=== PATIENT | female | born 1990 | race Caucasian/White ===

== ENCOUNTER 2020-10-12 14:31 | Emergency (ER) | payer OTHER, SELFPAY ==
--- NOTE | ~2020-10-12 | US_ITS ---
EXAMINATION: US OB <=14 wk fetus w TV DATE: 10/12/2020 15:25 INDICATION: Cramping and spotting during first trimester . TECHNIQUE: Real-time pelvic ultrasound utilizing both a transvaginal and transabdominal probe was pe rformed. The interpreting radiologist was not present for the study. COMPARISON: None. FINDINGS: The uterus is obscured on the transabdominal images due to shadowing bowel gas. On transvaginal imagi ng the uterus measures 8.2 x 5.3 x 7.9 cm. There is an intrauterine gestational sac. A yolk sac and f etal pole are identified. The crown rump length measures 5 mm, which correlates with an estimated ges tational age of 6 weeks and 1 days. heart motion is identified measuring 99 beats per minute (b pm) by M-mode Doppler. 10 x 6 x 3 mm hypoechoic likely subchorionic hematoma along the inferior/cervi jayashree side of the gestational sac. The right ovary measures 2.5 x 2.0 x 1.5 cm. The left ovary measures 3.1 x 2.2 x 2.6 cm. 1.6 similar anechoic likely corpus luteum cyst in the left ovary. Vascular flow seen in both ovaries on color Dop pler. There is a small amount of likely physiologic anechoic free fluid in the cul-de-sac. IMPRESSION: 1. Single living fetus with heart of 99 bpm. 2. Gestational age by ultrasound of 6 weeks 1 day(s) +/- 4 day(s) with ultrasound estimated date of delivery (SARAY) of 06/06/2021. 3. Small subchorionic hematoma. Reviewed, dictated and finalized at [facility]. ERY SUPERVISOR IMPRESSION: 1. Single living fetus with heart of 99 bpm. 2. Gestational age by ultrasound of 6 weeks 1 day(s) +/- 4 day(s) with ultraso und estimated date of delivery (SARAY) of 06/06/2021. 3. Small subchorionic hematoma.
[2020-10-12 14:34] VITALS: BP 126/68; PULSE 92; RESP 19; TEMP 36.9; O2SAT 100
[2020-10-12 14:51] LABS: Basophils Absolute Auto 0.1 K/mm3 (0.0-0.1); Basophils Percent Auto 0.5 % (0.2-1.2); Eosinophils Absolute Auto 0.1 K/mm3 (0-0.3); Eosinophils Percent Auto 0.5 % (0-4.4); Hematocrit 37.2 % (37.0-47.0); Hemoglobin 12.4 g/dL (12.0-15.0); Immature Granulocyte Absolute 0.02 K/mm3 (0.00-0.031); Immature Granulocyte Percent A 0.2 % (0-0.5); Lymphocytes Absolute Auto 2.49 K/mm3 (0.9-3.2); Lymphocytes Percent Auto 25.5 % (18.3-44.2); Mean Corpuscular HGB Conc 33.3 g/dl (32-36); Mean Corpuscular Volume 89.9 fl (80-100); Monocytes Absolute Auto 0.7 K/mm3 (0.1-0.6); Monocytes Percent Auto 7.3 % (2.6-8.5); Neutrophils Absolute Auto 6.4 K/mm3 (1.3-6.7); Platelet Count Result 258 k/mm3 (150-375); Red Blood Count 4.14 M/mm3 (4.2-5.4); Red Cell Distribution Width 12.4 % (11.5-14.5); White Blood Count 9.8 K/mm3 (4.5-10.0)
[2020-10-12 15:10] LABS: Add Urine Microscopic? YES; Appearance Urine Cloudy (Clear); Bacteria Urine Trace /hpf; Bilirubin Urine Negative (Negative); Blood Urine 2+ (Negative); Color Urine Yellow (Yellow); Glucose Urine UA Negative (Negative); Ketones Urine Negative (Negative); Leukocyte Esterase Ur 1+ LEU/UL (Negative); Mucus Urine Moderate /lpf; Nitrate Urine Negative (Negative); Protein Urine Negative (Negative); RBC Urine 0-2 /hpf (0-2); Specific Grav Ur 1.025 (1.001-1.035); Squamous Epithelial Cell Urine Many /hpf (Few); Urobilinogen Urine Negative mg/dL (<2.0); WBC Urine 0-3 /hpf
--- NOTE | 2020-10-12 16:26 | ED.PREGNANCY ---
HPI - General Chief complaint: Vaginal Bleeding Stated complaint: CRAMPING AND LOW BACK PAIN - 6 WKS PREG Time Seen by Provider: 10/12/20 15:48 Source: patient Mode of arrival: ambulatory Limitations: no limitations History of Present Illness HPI Narrative: This patient is a 30 year old female approximately 6 weeks GA who presents for evaluation of abdominal cramping and vaginal spotting. She reports she has had intermittent vaginal spotting for 2 weeks. She has brown discharge when she wipes now. She also developed lower back and lower abdominal cramping yesterday. She denies urinary symptoms. She has been having some nausea and vomiting. She had a miscarriage 3 months ago with the same presentation. Related Data Allergies Allergy/AdvReac Type Severity Reaction Status Date / Time No Known Allergies Allergy Verified 10/12/20 17:06 Review of Systems Review of Systems: All systems reviewed & are unremarkable except as noted in HPI and below Gastrointestinal: Gastrointestinal: Reports abdominal pain, Reports nausea and Reports vomiting Genitourinary: Genitourinary: Reports vaginal discharge Musculoskeletal: Musculoskeletal: Reports back pain [facility] Past Medical History Medical History (Updated 10/12/20 @ 18:08 by Yen Platt MD) Endometriosis History of PCOS Surgical History Surgical History (Updated 10/12/20 @ 16:27 by Yen Platt MD) History of endometrial ablation Social History Social History (Updated 10/12/20 @ 16:28 by Yen Platt MD) Smoking status: Never smoker Alcohol intake: never Substance use: never Gender identity (if verbalized by the patient): Female Exam Const: General: no acute distress and alert Orientation/consciousness: patient oriented x3 HENMT: Face and sinus: face symmetric Eyes: EOM: EOMs intact bilaterally Resp: Effort & Inspection: normal respiratory effort, no retractions, not tachypneic and no use of accessory muscles Auscultation: clear to auscultation bilaterally Cardio: Rate: regular rate Rhythm: regular rhythm Heart sounds: no murmurs GI: GI Palp: Yes Soft to palpation, No Tenderness to palpation present (GI), No Guarding due to palpation present (GI) and No Rigid due to palpation Auscultation: normal bowel sounds : Speculum Exam - Cervix: Cervical os closed Other: yellow mucous discharge Skin: General skin exam: normal color Rashes: no rashes Neuro: General: patient oriented x3 and moves all extremities Course Reevaluation(s) Reevaluation #1: I have discussed with patient that she has subchorionic hemorrhage.. She is A+ so no rhogam needed. Date: 10/12/20 Time: 18:05 Vital Signs Vital signs: Vital Signs Temperature 98.5 F 10/12/20 14:34 Pulse Rate 92 10/12/20 14:34 Respiratory Rate 19 10/12/20 14:34 Blood Pressure 126/68 10/12/20 14:34 Pulse Oximetry 100 10/12/20 14:34 Temperature 98.5 F 10/12/20 14:34 Pulse Rate 70 10/12/20 18:25 Respiratory Rate 12 10/12/20 18:25 Blood Pressure 124/70 10/12/20 18:25 Pulse Oximetry 99 10/12/20 18:25 MDM - OB/Uterine Contractions Lab Data Attestation: I reviewed the patient's lab results. Result diagrams: 10/12/20 14:45 Labs: Lab Results 10/12/20 10/12/20 10/12/20 Range/Units 14:45 14:45 14:58 WBC 9.8 (4.5-10.0) K/mm3 RBC 4.14 L (4.2-5.4) M/mm3 Hgb 12.4 (12.0-15.0) g/dL Hct 37.2 (37.0-47.0) % MCV 89.9 (80-100) fl MCH 30.0 (26-34) pg MCHC 33.3 (32-36) g/dl RDW 12.4 (11.5-14.5) % Plt Count 258 (150-375) k/mm3 MPV 10.0 (7.4-10.4) fl Immature Gran % (Auto) 0.2 (0-0.5) % Neut % (Auto) 66.0 (45.5-73.1) % Lymph % (Auto) 25.5 (18.3-44.2) % [place] % (Auto) 7.3 (2.6-8.5) % Eos % (Auto) 0.5 (0-4.4) % Baso % (Auto) 0.5 (0.2-1.2) % Lymph # (Auto) 2.49 (0.9-3.2) K/mm3 [place] # (Auto) 0.7 H (0.1-0.6) K/mm3 Eos # (Auto)
[2020-10-12 16:33] VITALS: BP 121/71; PULSE 77
[2020-10-12 16:34] VITALS: BP 116/68; PULSE 95
[2020-10-12 16:35] VITALS: BP 119/67; PULSE 85
[2020-10-12 17:54] VITALS: BP 122/72; PULSE 76; RESP 12; O2SAT 99
[2020-10-12 18:25] VITALS: BP 124/70; PULSE 70; RESP 12; O2SAT 99
== END 2020-10-12 18:26 | disposition home or self-care (01) ==
PROVIDERS: Emergency Medicine; Emergency Provider General Practice; PCP Nurse Practitioner Family
DX: O20.0 Threatened abortion (principal); O99.281 Endocrine, nutritional and metabolic diseases complicating pregnancy, first trimester; E28.2 Polycystic ovarian syndrome; Z3A.01 Less than 8 weeks gestation of pregnancy; O34.81 Maternal care for other abnormalities of pelvic organs, first trimester; N80.9 Endometriosis, unspecified
CPT/HCPCS: 36415; 76801; 76817; 81001; 84702; 85025; 85461; 87070; 87491; 87591; 87808; 99284

== ENCOUNTER 2020-10-15 16:02 | Emergency (ER) | payer OTHER, SELFPAY ==
[2020-10-15 16:06] VITALS: BP 114/63; PULSE 90; RESP 14; TEMP 37.1; O2SAT 98
[2020-10-15 16:25] LABS: Basophils Absolute Auto 0.1 K/mm3 (0.0-0.1); Basophils Percent Auto 0.6 % (0.2-1.2); Eosinophils Percent Auto 0.5 % (0-4.4); Hematocrit 37.7 % (37.0-47.0); Hemoglobin 12.9 g/dL (12.0-15.0); Immature Granulocyte Absolute 0.03 K/mm3 (0.00-0.031); Immature Granulocyte Percent A 0.3 % (0-0.5); Lymphocytes Absolute Auto 2.11 K/mm3 (0.9-3.2); Lymphocytes Percent Auto 23.9 % (18.3-44.2); Mean Corpuscular HGB Conc 34.2 g/dl (32-36); Mean Corpuscular Hemoglobin 30.1 pg (26-34); Mean Corpuscular Volume 87.9 fl (80-100); Mean Platelet Volume 10.3 fl (7.4-10.4); Monocytes Absolute Auto 0.6 K/mm3 (0.1-0.6); Monocytes Percent Auto 6.7 % (2.6-8.5); Platelet Count Result 246 k/mm3 (150-375); Red Blood Count 4.29 M/mm3 (4.2-5.4); Red Cell Distribution Width 12.3 % (11.5-14.5); White Blood Count 8.8 K/mm3 (4.5-10.0)
[2020-10-15 16:40] LABS: Alanine Aminotransferase 19 U/L (4-35); Albumin Level 4.5 g/dL (3.5-5.1); Alkaline Phosphatase 54 U/L (38-126); Anion Gap 9 mmol/L (8-16); Aspartate Amino Transferase 22 U/L (14-36); Bilirubin,Total 0.6 mg/dL (0.2-1.3); Blood Urea Nitrogen 6 mg/dL (7-17); Calcium 9.2 mg/dL (8.4-10.2); Carbon Dioxide 25 mmol/L (22-30); Chloride 101 mmol/L (98-107); Estimated CRCL calculation 150 ml/min; Estimated Glomerular Filt Rate > 60; Glucose 99 mg/dL (65-105); Lipase 51 U/L (23-300); Potassium 3.7 mmol/L (3.4-5.0); Sodium 135 mmol/L (137-145)
[2020-10-15 17:00] LABS: Add Urine Microscopic? YES; Amorphous Sediment Urine Moderate; Appearance Urine Cloudy (Clear); Bacteria Urine Trace /hpf; Bilirubin Urine Negative (Negative); Blood Urine 2+ (Negative); Calcium Oxalate Crystals Urine Present /hpf; Color Urine Yellow (Yellow); Glucose Urine UA Negative (Negative); Ketones Urine 1+ mg/dL (Negative); Leukocyte Esterase Ur Trace LEU/UL (Negative); Mucus Urine Few /lpf; Nitrate Urine Negative (Negative); Protein Urine 1+ mg/dL (Negative); Specific Grav Ur 1.019 (1.001-1.035); Squamous Epithelial Cell Urine Few /hpf (Few); Urobilinogen Urine Negative mg/dL (<2.0); WBC Urine 0-3 /hpf
[2020-10-15] MEDS: BELLADONNA ALK/PHENOB ELIX 10 ML, MAG HYDROX/ALUMINUM HYD/SIMETH 30 ML, LIDOCAINE HCL 2... PO (17:36)
--- NOTE | 2020-10-15 17:49 | ED.ABDPAIN ---
HPI - Abdominal Pain General Chief Complaint: Abdominal Pain Stated Complaint: abd pain Time Seen by Provider: 10/15/20 16:49 Source: patient and family Limitations: no limitations History of Present Illness HPI narrative: 30-year-old with a history of PCOS, endometriosis here with complaints of epigastric pain for past few days. Patient states that he has a constant pain in the upper abdomen. She denies any fever or chills has occasional nausea. Patient states that she is . MD elicited complaint: abdominal pain Pertinent past history: none Pain Consistency: constant Location: epigastric Severity: moderate Quality: aching Radiation: none Migration to: no migration Relieving factors: nothing Related Data Home Medications Medication Instructions Recorded Confirmed 10/15/20 naltrexone 4 mg 10/15/20 progesterone micronized 200 mg 10/15/20 Allergies Allergy/AdvReac Type Severity Reaction Status Date / Time Sulfa (Sulfonamide Allergy Hives Verified 10/15/20 16:42 Antibiotics) Review of Systems Review of Systems: All systems reviewed & are unremarkable except as noted in HPI and below Constitutional: Constitutional: Reports no additional constitutional complaints Eyes: Eyes: Reports as per HPI and Reports no additional eye complaints ENT: Reports as per HPI Cardiovascular: Cardiovascular: Reports as per HPI Respiratory: Respiratory: Reports no additional respiratory complaints Gastrointestinal: Gastrointestinal: Reports as per HPI Musculoskeletal: Musculoskeletal: Reports no additional musculoskeletal complaints Neurologic: Reports system reviewed and no additional complaints, except as documented PMFSH Past Medical History Medical History Endometriosis History of PCOS Surgical History Surgical History History of endometrial ablation Social History Social History Smoking status: Never smoker Alcohol intake: never Substance use: never Gender identity (if verbalized by the patient): Female Exam Narrative: Exam Narrative: GENERAL: Well-appearing, well-nourished, and in no acute distress. HEAD: Normocephalic, atraumatic. EYES: PERRLA and EOMI. NECK: Supple. CHEST: Clear to auscultation. No respiratory distress. HEART: Regular rate and rhythm. No murmur heard. Normal peripheral pulses. ABDOMEN: Soft, tender in the epigastric area , nondistended, normal active bowel sounds. EXTREMITIES: Normal range of motion. No edema. SKIN: Warm, dry, no rash. NEURO: No focal deficits. Alert and oriented x3. PSYCH: Normal mood and affect. Course Course Emergency Course: Patient states he is feeling slightly better. Informed patient about lab work. Her gastritis could be exacerbated by her from . Advised her to take Maalox as needed, follow-up with primary doctor. Vital Signs Vital signs: Vital Signs Temperature 37.1 C 10/15/20 16:06 Pulse Rate 90 10/15/20 16:06 Respiratory Rate 14 10/15/20 16:06 Blood Pressure 114/63 10/15/20 16:06 Pulse Oximetry 98 10/15/20 16:06 Temperature 37.1 C 10/15/20 16:06 Pulse Rate 90 10/15/20 16:06 Respiratory Rate 14 10/15/20 16:06 Blood Pressure 114/63 10/15/20 16:06 Pulse Oximetry 98 10/15/20 16:06 MDM - Abdominal Pain Lab Data Result diagrams: 10/15/20 16:15 10/15/20 16:15 Labs: Lab Results 10/15/20 10/15/20 10/15/20 Range/Units 16:15 16:15 16:46 WBC 8.8 (4.5-10.0) K/mm3 RBC 4.29 (4.2-5.4) M/mm3 Hgb 12.9 (12.0-15.0) g/dL Hct 37.7 (37.0-47.0) % MCV 87.9 (80-100) fl MCH 30.1 (26-34) pg MCHC 34.2 (32-36) g/dl RDW 12.3 (11.5-14.5) % Plt Count 246 (150-375) k/mm3 MPV 10.3 (7.4-10.4) fl Immature Gran % (Auto) 0.3 (0-0.5) % Neut % (Auto)
[2020-10-15 18:20] VITALS: BP 99/56; PULSE 80; RESP 16; O2SAT 100
[2020-10-15] MEDS: ONDANSETRON HCL ODT 4 MG TABLET (18:22)
== END 2020-10-15 18:20 | disposition home or self-care (01) ==
PROVIDERS: Emergency Provider Family Medicine; PCP Family Medicine
DX: O99.619 Diseases of the digestive system complicating pregnancy, unspecified trimester (principal); K29.70 Gastritis, unspecified, without bleeding; Z3A.00 Weeks of gestation of pregnancy not specified
CPT/HCPCS: 36415; 80053; 81001; 81025; 83690; 85025; 99283; A9270

== ENCOUNTER 2024-11-30 12:39 | Outpatient (CLI) | payer OTHER, SELFPAY ==
--- NOTE | ~2024-11-30 | XR_ITS ---
CHEST RADIOGRAPH, PA AND LATERAL CLINICAL HISTORY: HISTORY OF PNEUMONIA X 3 WEEKS, COUGH . COMPARISON: None available TECHNIQUE: PA and lateral views of the chest. FINDINGS The cardiomediastinal silhouette is partially obscured. Dense opacification of the superior segment of the left lower lobe. The remainder of the lungs are clear. IMPRESSION: Dense opacification of the superior segment of the left lower lobe, as detailed above. Reviewed, dictated and finalized at location A. ESTIMATOR
== END 2024-11-30 12:40 | disposition home or self-care (01) ==
PROVIDERS: PCP Family Medicine; Visit Provider Family Medicine
DX: R91.8 Other nonspecific abnormal finding of lung field (principal); R05.9 Cough, unspecified; Z87.01 Personal history of pneumonia (recurrent)
CPT/HCPCS: 71046

== ENCOUNTER 2025-01-09 12:21 | Outpatient (CLI) | payer OTHER, SELFPAY ==
--- NOTE | ~2025-01-09 | XR_ITS ---
Clinical Indication: Pneumonia PA and lateral views of the chest: Comparison: 11/30/2024 Findings: The lungs are clear, without evidence of focal consolidation or pleural effusion. Cardiome diastinal silhouette is within normal limits. Bones and soft tissues are unremarkable. Impression: Normal chest. Reviewed, dictated and finalized at [facility]. 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
--- OUTSIDE RECORDS SUMMARY | 2025-01-09 12:26 | XMS_ITS | Clinical Summary ---
Author Organization [facility] [email or web address] Address [address] [place] [address] Care Team Providers Care Flea Market Seller Name Role Phone Jax Carl MD Primary Care Provider Source Comments [facility],non-owned Affiliates and Associated Physician Practices is amultiple site organization consisting of ambulatory clinics and hospital sitesin [place], [place], [place] and [place]. This disclosure is being madepursuant to the Care Everywhere program and may not contain all information available regarding this patient. Last updated 18.[facility] [email or web address] Allergies Active Allergy Reactions Criticality Noted Date Comments Nsaids Nausea and/or Vomiting,GI Discomfort 06/13/2019 Penicillins Rash Medium 05/29/2020 Sulfa Drugs Shortness of Breath,Rash,Urticaria High 02/11/2017 Medications * Be aware that medications may not be up to date on this document. Alwaysverify current medications with the patient. Medication Sig Dispensed Refills Start Date End Date Status FLUoxetine (PROZAC) 20 MG capsule Take 40 mg by mouth once daily 2 03/09/2019 Active ALPRAZolam (XANAX) 0.25 MG tablet Take 0.25 mg by mouth as needed 0 02/15/2019 Active Acetaminophen-Codein e (TYLENOL/CODEINE #3) 300-30 MG Take 1 tablet by mouth 2 times daily Active baclofen (LIORESAL) 10 MG/20ML injection by Intrathecal route once Active Active Problems No known active problems Encounters Date Type Department Care Team Description 01/03/2025 Travel 01/03/2025 Telephone [facility] - WATCH REPAIR TECHNICIAN [address] [place] [id number] Lupe Denis Appointment 12/05/2024 Travel from Last 3 Months Family History Medical History Relation Name Comments Cancer - Bladder Father Cancer - Prostate Father Diabetes - Type 1 Father Bipolar Disorder Maternal Grandmother Diabetes - Type 2 Maternal Grandmother Muscular Dystrophy Mother Thyroid Disease Mother Hashimotos Depression Paternal Grandmother Thyroid Disease Sister Hashimotos Relation Name Status Comments Father Maternal Grandmother Mother Paternal Grandmother Sister Social History Tobacco Use Types Packs/Day Years Used Date Smoking Tobacco: Former Cigarettes Smokeless Tobacco: Current Alcohol Use Standard Drinks/Week Comments Yes 1 (1 standard drink = 0.6 oz pur e alcohol) occasionally Sex and Gender Information Value Date Recorded Sex Assigned at Not on file Gender Identity Not on file Sexual Orientation Not on file Last Filed Vital Signs Vital Sign Reading Time Taken Comments Blood Pressure 122/80 07/17/2019 9:52 AM CDT Pulse 81 06/13/2019 4:57 PM CDT Temperature 36.9 C (98.5 F) 06/13/2019 4:57 PM CDT Respiratory Rate 17 06/13/2019 4:57 PM CDT Oxygen Saturation 100% 06/13/2019 4:57 PM CDT Inhaled Oxygen Concentration - - Weight 75.7 kg (166 lb 12.8 oz) 05/29/2020 3:22 PM CDT Height 177.8 cm (5' 10 ) 05/29/2020 3:22 PM CDT Body Mass Index 23.93 05/29/2020 3:22 PM CDT Plan of Treatment Upcoming Encounters Date Type Department Care Team (Late st Contact Info) Description 02/08/2025 3:00 PM CDT Office Visit [facility] - WATCH REPAIR TECHNICIAN [address], [facility] [address] [place] [id number] Daija Brandon MD [address] [place] [address] Health Maintenance Due Date Last Done Comments PAP SMEAR 1991 HIV SCREENING 2006 HEPATITIS C SCREENING 05/06/2009 DTAP/TDAP/TD VACCINES (1 - Tdap) 2010 HEPATITIS B VACCINE (1 of 3 - 19+ 3-dose series) 2010 COVID-19 VACCINE (2023-2 5 season) 2024 INFLUENZA VACCINE (#1) 2024 DEPRESSION SCREENING 11/22/2024 ZOSTER VACCINE (1 of 2) 2041 HIB VACCINE Aged Out No longer eligi ble based on patient's age to complete this topic HPV VACCINE Aged Out No longer eligi ble based on patient's age to complete this topic MENINGOCOCCAL (Group B) VACCINE Aged Out No longer eligible based on patient's age to complete this topic MENINGOCOCCAL VACCINE Aged Out No vicky purvi eligible based on patient's age to complete this topic PNEUMOCOCCAL VACCINE Aged Out No long er eligible based on patient's age to complete this topic Care Teams Flea Market Seller Relationship Specialty Start Date End Date Jax Carl MD [address] [place] [address] PCP - General 03/23/19
--- OUTSIDE RECORDS SUMMARY | 2025-01-09 12:26 | XMS_ITS | Clinical Summary ---
Author Organization [facility] Address [address] [place] [address] Phone Care Team Providers Care Global Ceo Name Role Phone Jax Carl MD Primary Care Provider [phone] Social History Tobacco Use Types Packs/Day Years Used Date Smoking Tobacco: Never Assessed Comments Unknown Sex and Gender Information Value Date Recorded Sex Assigned at Not on file Legal Sex Female 12:28 AM CDT Gender Identity Not on file Sexual Orientation Not on file Plan of Treatment Health Maintenance Due Date Last Done Comments Hepatitis C Virus (HCV) Screening 1991 TdaP Immunization 1991 Hepatitis B Immunization (1 of 3 - 19+ 3-dose series) 2010 Pap Smear 2012 Cervical Cancer Screening (CCS) 2021 HPV/Cotest 2021 Influenza Immunization (#1) 2024 SARS-COV-2 Immunization ( season) 2024 Respiratory Syncytial Virus (RSV) Immunization (Adult) (1 - 1-dose 75+ series) 2066 DTaP/Tdap/Td Immunization Discontinued 1992, 10/27/1992, 06/10/1992, Additional history exists Meningococcal Immunization (ACWY) Aged Out No longer eligible based on patient's age to complete this topic Pneumococcal Immunization Combined Aged Out No longer eligible based on patient's age to complete this topic Rotavirus Immunization Aged Out No lo nger eligible based on patient's age to complete this topic Insurance MEDICAID [employer] Care Teams Global Ceo Relationship Specialty Start Date End Date Jax Carl MD [address] [place] [address] PCP - General Family Medicine 06/28/18
--- OUTSIDE RECORDS SUMMARY | 2025-01-09 12:26 | XMS_ITS | Clinical Summary ---
Author Organization [facility] Address [address] [place] [id number] Care Team Providers Care Aircraft De Icer Installer Name Role Phone Jax Carl MD Primary Care Provider [phone] Jax Carl MD Unavailable [phone] Allergies Active Allergy Reactions Criticality Noted Date Comments Penicillins Sulfa (Sulfonamide Antibiotics) Medications No known medications Active Problems Problem Noted Date Diagnosed Date Normal labor and delivery 06/05/2021 Constipation 10/25/2020 Assessment & Plan (10/25/2020 12:00 PM APPLE PACKING HEADER): -Start fiber gummies in the morning and take one dose of Miralax in the evening. If no BM in a few days with these, use 2 doses of Miralax in the evening. -If still no BM after a couple days of this regimen, add docusate 100mg every day to BID. -If still having issues, can use Milk of mag prn along with above regimen. -Pt will likely need colonoscopy at some point if issues continue but due to , we will do this at a later time if needed. Epigastric burning sensation 10/25/2020 Assessment & Plan (10/25/2020 12:01 PM APPLE PACKING HEADER): -Limit use of things due to . She should continue TUMS and famotidine prn. -Try to avoid spicy, acidic foods. BMI 23.0-23.9, adult 10/25/2020 Threatened miscarriage 06/24/2020 Irritable bowel syndrome 01/24/2013 Abdominal pain 10/24/2012 Assessment & Plan (10/25/2020 12:00 PM APPLE PACKING HEADER): -Occurring during BM and likely related to constipation. Family History Medical History Relation Name Comments Diabetes Father Family history of diabetes mellitus - (Added by TW Conv) Relation Name Status Comments Father Social History Tobacco Use Types Packs/Day Years Used Date Smoking Tobacco: Former Personal Safety Answer Date Recorded Getting School Help Needed Not on file 01/16 Comments Unknown Sex and Gender Information Value Date Recorded Sex Assigned at Not on file Legal Sex Female 4:37 AM APPLE PACKING HEADER Gender Identity Not on file Sexual Orientation Not on file Obstetrics History Para Term AB IAB SAB Ectopic Multiple Livin g Live Births 1 Date Outcome GA Total Labor Labor/2nd/3rd Weight Sex Type Anes PTL Joanie A1 A5 Name Clin Last Filed Vital Signs Vital Sign Reading Time Taken Comments Blood Pressure 118/78 11/14/2022 11:00 AM APPLE PACKING HEADER Pulse 92 11/14/2022 11:00 AM APPLE PACKING HEADER Temperature 37.1 C (98.8 F) 11/14/2022 11:00 AM APPLE PACKING HEADER Respiratory Rate 16 11/14/2022 11:00 AM APPLE PACKING HEADER Oxygen Saturation 98% 11/14/2022 11:00 AM APPLE PACKING HEADER Inhaled Oxygen Concentration - - Weight 79.4 kg (175 lb) 11/14/2022 11:00 AM APPLE PACKING HEADER Height 177.8 cm (5' 10 ) 11/14/2022 11:00 AM APPLE PACKING HEADER Body Mass Index 25.11 11/14/2022 11:00 AM APPLE PACKING HEADER Plan of Treatment Health Maintenance Due Date Last Done Comments Cervical Cancer Screening 1991 Depression Screening 1991 Hepatitis C Screening 1991 DTaP/Tdap/Td Vaccine (5 - Tdap) 2002 06/09/1993, 10/27/1992, 06/10/1992, Additional history exists Varicella Vaccines (1 of 2 - 13+ 2-dose series) 2004 Hepatitis B Screening 2009 Regular Well Visit/Exam 18-64 2009 Influenza Vaccine (#1) 2024 HPV Vaccines Aged Out No longer eligi ble based on patient's age to complete this topic Pneumococcal vaccine <65 Aged Out No longer eligible based on patient's age to complete this topic Insurance [facility] Care Teams Aircraft De Icer Installer Relationship Specialty Start Date End Date Jax Carl MD PCP - General Family Medicine 09/03/20 Jax Carl MD 09/03/20
--- OUTSIDE RECORDS SUMMARY | 2025-01-09 12:26 | XMS_ITS | Continuity of Care Document ---
Author Organization [facility] Address [address] [place] [address] Phone Care Team Providers Care Plant Safety Leader Name Role Phone Axel Garrett MD Unavailable Unavailable Procedures Procedure Date Office/outpatient Visit, Est Eye Exam, New Patient Advance Directives Directive Yes / No Effective Date File Name No Information Encounters Encounter Description Practice Location Reason(s) For Visit Diagnoses Date Provider Providers Copied on Encounter Office/outpat ient Visit, Est [facility], [address] [place] [address] [address], [place], [place], [id number], tel:[phone] SEC Greg COULTER Professional No Information 9-201 2 Tami Reyna. [address] [facility] [place], [id number], [place]. tel:[phone] [facility], [address] [place] [address] [address], [place], [place], [id number], tel:[phone] SEC [place] MARYLIN Professional No Information 2-200 9 Tami Reyna. [address], [facility] [address], [place], [place], [id number], [place]. tel:[phone] Family History Family Member Type Diagnosis Age At Onset No Information Payers Payer name Insurance type Covered republican ID Authoriza tion(s) No Information Social History Type Description Quantity Date Captured Comments Sex Female Smoking Status No Information Chief Complaint And Reason For Visit No Information Reason For Referral Reason For Referral No Information History Of Present Illness Encounter Date Complaint History Of Prese nt Illness No Information Functional Status Date Functional Assessmen t No Information Instructions Date Instruction Additional Infor mation No Information Assessments Type Assessment Date No Information Patient Care Teams Name Effective Dates (start - stop) Status Members No Information
--- OUTSIDE RECORDS SUMMARY | 2025-01-09 12:26 | XMS_ITS | Referral Summary ---
Author Organization [facility] Address [address] [place] [address] Care Team Providers Care Combat Systems Engineer Name Role Phone Jax Carl MD Primary Care Provider [phone] Jax Carl MD Unavailable [phone] Allergies Active Allergy Reactions Criticality Noted Date Comments Penicillins Sulfa (Sulfonamide Antibiotics) Medications No known medications Active Problems Problem Noted Date Diagnosed Date Normal labor and delivery 06/05/2021 Constipation 10/25/2020 Assessment & Plan (10/25/2020 12:00 PM RUBY DEVELOPER): -Start fiber gummies in the morning and [...] 10/25/2020 Assessment & Plan (10/25/2020 12:01 PM RUBY DEVELOPER): -Limit use of things due to . She should continue TUMS and famotidine prn. -Try to avoid spicy, acidic foods. BMI 23.0-23.9, adult 10/25/2020 Threatened miscarriage 06/24/2020 Irritable bowel syndrome 01/24/2013 Abdominal pain 10/24/2012 Assessment & Plan (10/25/2020 12:00 PM RUBY DEVELOPER): -Occurring during BM and likely related to constipation. Social History Tobacco Use Types Packs/Day Years Used Date Smoking Tobacco: Former Personal Safety Answer Date Recorded Getting School Help Needed Not on file 01/16 Comments Unknown Sex and Gender Information Value Date Recorded Sex Assigned at Not on file Legal Sex Female 4:37 AM RUBY DEVELOPER Gender Identity Not on file Sexual Orientation Not on file Last Filed Vital Signs Vital Sign Reading Time Taken Comments Blood Pressure 118/78 11/14/2022 11:00 AM RUBY DEVELOPER Pulse 92 11/14/2022 11:00 AM RUBY DEVELOPER Temperature 37.1 C (98.8 F) 11/14/2022 11:00 AM RUBY DEVELOPER Respiratory Rate 16 11/14/2022 11:00 AM RUBY DEVELOPER Oxygen Saturation 98% 11/14/2022 11:00 AM RUBY DEVELOPER Inhaled Oxygen Concentration - - Weight 79.4 kg (175 lb) 11/14/2022 11:00 AM RUBY DEVELOPER Height 177.8 cm (5' 10 ) 11/14/2022 11:00 AM RUBY DEVELOPER Body Mass Index 25.11 11/14/2022 11:00 AM RUBY DEVELOPER Plan of Treatment Not on file Insurance [facility] Care Teams Combat Systems Engineer Relationship Specialty Start Date End Date Jax Carl MD PCP - General Family Medicine 09/03/20 Jax Carl MD 09/03/20
--- OUTSIDE RECORDS SUMMARY | 2025-01-09 12:26 | XMS_ITS | Referral Summary ---
Author Organization [facility] Address [address] [place] [address] Care Team Providers Care Power Plant Operator Name Role Phone Jax Carl MD Primary Care Provider [phone] Source Comments [facility],non-owned Affiliates and Associated Physician Practices is amultiple site organization consisting of ambulatory clinics and hospital sitesin [place], [place], [place]. This disclosure is being madepursuant to the Care Everywhere program and may not contain all information available regarding this patient. Last updated 18.[facility] Encounters Date Type Department Care Team Description 01/03/2025 Travel 01/03/2025 Telephone [facility] - ROLLER OPERATOR [address] [place] [address] Lupe Denis Appointment 12/05/2024 Travel from Last 3 Months Allergies Active Allergy Reactions Criticality Noted Date [...] Active Active Problems No known active problems Social History Tobacco Use Types Packs/Day Years [...] Description 02/08/2025 3:00 PM CDT Office Visit [facility] - ROLLER OPERATOR [address], [facility] [address] [place] [id number] Daija Brandon MD [address] [place] [address] Care Teams Power Plant Operator Relationship Specialty Start Date End Date Jax Carl MD [address] [place] [phone] PCP - General 03/23/19
--- OUTSIDE RECORDS SUMMARY | 2025-01-09 12:26 | XMS_ITS | Patient Health Summary ---
Author Organization [facility] Address [address] [place] [address] Care Team Providers Care Patient Support Tech Name Role Phone Jax Carl MD Primary Care Provider Note from [facility],non-owned Affiliates and Associated Physician Practices is amultiple site organization consisting of ambulatory clinics and hospital sitesin [place], [place], [place] and [place]. This disclosure is being madepursuant to the Care Everywhere program and may not contain all information available regarding this patient. Last updated 18.[facility] Allergies * Nsaids(Nausea and/or Vomiting,GI Discomfort) * Penicillins(Rash) -Medium Criticality * Sulfa Drugs(Shortness of Breath,Rash,Urticaria) -High Criticality Medications * Be aware that medications may not be up to date on this document. Alwaysverify current medications with the patient. * FLUoxetine (PROZAC) 20 MG capsule(Started 03/09/2019) Take 40 mg by mouth once daily 2 refills left * ALPRAZolam (XANAX) 0.25 MG tablet(Started 02/15/2019) Take 0.25 mg by mouth as needed * Acetaminophen-Codeine (TYLENOL/CODEINE #3) 300-30 MG Take 1 tablet by mouth 2 times daily * baclofen (LIORESAL) 10 MG/20ML injection by Intrathecal route once Active Problems No known active problems Social [...] Mass Index 23.93 05/29/2020 3:22 PM CDT Procedures * TESTOSTERONE TOTAL(Performed 07/19/2019) * DHEA SULFATE(Performed 07/19/2019) * HYDROXYPROGESTERONE 17- QUANT(Performed 07/19/2019) * GTT 2 HR (75G) NON GESTATIONAL(Performed 07/19/2019) * GLUCOSE PLASMA(Performed 07/19/2019) * UT INSERT NON-INDWELLING BLADDER(Performed 07/17/2019) Performed for IC (interstitial cystitis) * URINALYSIS - POINT OF CARE (AMB) [facility](Performed 07/17/2019) Performed for IC (interstitial cystitis) * APHERESIS/TRANSFUSION ORDER(Performed 06/15/2019) * CARDIAC RHYTHM STRIP ORDER(Performed 06/15/2019) * PATHOLOGY TISSUE EXAM (STL)(Performed 06/13/2019) Performed for Diagnosis unknown * ENDOTRACHEAL TUBE NOTE(Performed 06/13/2019) * LAPAROSCOPIC ENTEROLYSIS(Performed 06/13/2019) Performed for Diagnosis unknown * URETEROLYSIS(Performed 06/13/2019) Performed for Diagnosis unknown * CYSTOSCOPY WITH HYDRODISTENSION BLADDER(Performed 06/13/2019) Performed for Diagnosis unknown * LAPAROSCOPIC APPENDECTOMY(Performed 06/13/2019) Performed for Diagnosis unknown * LAPAROSCOPIC FULGURATION/EXCISION LESION PELVIC/OVARY (LASER)(Performed 06/13/2019) Performed for Diagnosis unknown * BLOOD TYPE VERIFICATION(Performed 06/13/2019) Performed for Preop examination * HCG URINE QUALITATIVE - POCT (IP) INTERFACED(Performed 06/13/2019) * HCG URINE QUAL POCT NOTIFICATION(Performed 06/13/2019) Performed for Preop examination * IMAGING/RADIOLOGY/XRAY RESULTS ORDER(Performed 06/08/2019) * TYPE + SCREEN PANEL(Performed 06/08/2019) Performed for Pre-op testing * BASIC METABOLIC PANEL (CALCIUM TOTAL)(Performed 06/08/2019) Performed for Pre-op testing * CBC W AUTO DIFFERENTIAL(Performed 06/08/2019) Performed for Pre-op testing * UT SONO EXAM, TRANSVAGINAL(Performed 05/05/2019) Performed for History of endometriosis, Chronic pelvic pain in female * CULTURE URINE(Performed 04/05/2019) * CHLAMYDIA + GC + TRICH DNA AMPL(Performed 04/05/2019) Performed for Chronic pelvic pain in female, Dyspareunia due to medical condition in female, Dyschezia, Dysmenorrhea, Hx of endometriosis, Vaginismus * INFLUENZA A+B - POINT OF CARE (AMB)(Performed 02/11/2017) Performed for Viral upper respiratory tract infection Results * HYDROXYPROGESTERONE 17- QUANT (07/19/2019 9:18 AM CDT) 17-Hydroxyproges terone LC/MS/MS 51 ng/dL [facility] Comment: Adult Female Reference Ranges for 17-Hydroxyprogesterone: Pre-Menopausal Mid Follicular: 23-102 ng/dL Pre-Menopausal Surge: 67-349 ng/dL Pre-Menopausal Mid Luteal: 139-431 ng/dL Postmenopausal Phase: < or = 45 ng/dL : First Trimester: 78-457 ng/dL Second Trimester: 90-357 ng/dL Third Trimester: 144-578 ng/dL This test was developed and its analytical performance characteristics have been determined by [email or web address]. It has not been cleared or approved by FDA. This assay has been validated pursuant to the CLIA regulations and is used for clinical purposes. Test Performed at: [facility] [address] [place] [address] ЕКАТЕРИНА LITTLE MD,PHD,MAIA 07/19/2019 9:18 AM CDT 07/19/2019 9:23 AM CDT Jose Martinez MD LAB - CHEMISTRY ORD ERABLES Performing Organization Address [facility] de Phone Number [facility] [address] [place] [address] * GTT 2 HR (75G) NON GESTATIONAL (07/19/2019 9:18 AM CDT) Fasting Specimen 81 65 - 99 mg/dL [facility] Comment:CHECKED NAMES & TIME S. 2 Hour Specimen 74 <140 mg/dL [facility] See Below [facility] Comment: [employer] [employer] Diagnostic Criteria for Diabetes Mellitus Glucose Value (mg/dL) Interpretation Fasting 2 hr Tolerance ------- Normal <100 <140 Impaired Fasting 100-125 Impaired Tolerance 140-199 Diabetes > or =126* > or =200* * Must be confirmed by testing on a subsequent day. Test Performed at: [facility] [id number] JAMES ROTH DO,MPH 07/19/2019 9:18 AM CDT 07/19/2019 9:23 AM CDT Jose Martinez MD LAB - CHEMISTRY ORD ERABLES Performing Organization Address [facility] de Phone Number [facility] [address] [place] [phone] * GLUCOSE PLASMA (07/19/2019 9:18 AM CDT) Glucose Fasting 84 65 - 99 mg/dL [facility] Comment: Fasting reference interval Test Performed at: [facility] [address] JAMES ROTH DO,MPH 07/19/2019 9:18 AM CDT 07/19/2019 9:23 AM CDT Jose Martinez MD LAB - CHEMISTRY ORD ERABLES Performing Organization Address [facility] Co de Phone Number [facility] [address] [place] [address] * DHEA SULFATE (07/19/2019 9:18 AM CDT) Dehydroepiandrosterone Sulfate (DHEAS) 171 18 - 391 mcg/dL [facility] Comment: Test Performed at: [facility] [address] [place] [address] JAMES ROTH DO,MPH 07/19/2019 9:18 AM CDT 07/19/2019 9:23 AM CDT Jose Martinez MD LAB - CHEMISTRY ORD SHALONDABLES Performing Organization Address [facility] de Phone Number [facility] [address] [place] [address] * TESTOSTERONE TOTAL (07/19/2019 9:18 AM CDT) Testosterone Total MS 34 2 - 45 ng/dL [facility] Comment: Data from J Clin Invest 1974:53:819-828 and J Clin Endocrinol Metab 1973;36:5123-8140. Men with clinically significant hypogonadal symptoms and testosterone values repeatedly in the range of the 200-300 ng/dL or less, may benefit from testosterone treatment after adequate risk and benefits counseling. For additional information, please refer to http://education.[employer]/faq/PNJ823 (This link is being provided for informational/ educational purposes only.) This test was developed and its analytical performance characteristics have been determined by [employer] [facility]. It has not been cleared or approved by the US Food and Drug Administration. This assay has been validated pursuant to the CLIA regulations and is used for clinical purposes. Test Performed at: [facility] [address] [address] BLAS YUNG MD,PHD 07/19/2019 9:18 AM CDT 07/19/2019 9:23 AM CDT Jose Martinez MD LAB - CHEMISTRY ORD MARIAN Performing Organization Address [facility] de Phone Number [facility] [address] [place] [address] * UT INSERT NON-INDWELLING BLADDER (07/17/2019 11:54 AM CDT) Narrative Nicolle Gtz MD - 07/17/2019 11:54 AM CDT Nicolle Gtz MD 07/17/2019 11:57 AM Procedure note: Straight catheterization was performed after swabbing the urethra with betadine. A 14 Fr urethral catheter was inserted without difficulty and the bladder was drained for 40 mL. The patient tolerated the procedure well. Nicolle Gtz MD PROCEDURE/MINOR JEANNIE GICAL ORDERABLES * URINALYSIS - POINT OF CARE (AMB) [facility] (07/17/2019) Specific [place] UA 1.005 pH UA 8 WBC UA trace Nitrite UA n Protein UA n Glucose UA n Ketones UA POCT n Urobilinogen UA n Bilirubin UA POCT n Blood Urine POCT n Urine URINE / Unknown 07/17/2019 Nicolle Gtz MD LAB - POINT OF CARE ORDERABLES * APHERESIS/TRANSFUSION ORDER (06/15/2019 2:21 PM CDT) Narrative 06/15/2019 2:21 PM CDT Ordered by an unspecified provider. Scanned Document NURSING - VITAL SIGN S AND ASSESSMENT * CARDIAC RHYTHM STRIP ORDER (06/15/2019 2:21 PM CDT) Narrative 06/15/2019 2:21 PM CDT Ordered by an unspecified provider. Scanned Document CARDIAC SERVICES ORD ERABLES * GROSS + MICRO EXAM (STL) (06/13/2019 1:30 PM CDT) Case Report Surgical Pathology Report Case: [id number] Authorizing Provider: Allen Gutierrez MD Collected: 06/13/2019 01:30 PM Ordering Location: [facility] Received: 06/14/2019 11:12 AM Pathologist: Shankar Bay MD Specimens: A) - Tissue, RIGHT UTERO OVARIAN B) - Fossa, RIGHT OVARIAN FOSSA C) - Tissue, RIGHT IP D) - Ligament, RIGHT UTEROSACRAL LIGAMENT E) - Tissue, RETROCERVICAL F) - Tissue, RIGHT PARARECTAL G) - Cul De Sac , RIGHT POSTERIOR CUL DE SAC H) - Cul De Sac , MIDDLE POSTERIOR CUL DE SAC I) - Cul De Sac , LEFT POSTERIOR CUL DE SAC J) - Tissue, LEFT PARARECTAL K) - Fossa, LEFT OVARIAN FOSSA L) - Tissue, LEFT PARAUTERINE M) - Ligament, LEFT UTEROSACRAL LIGAMENT N) - Lesion, ANTERIOR RECTAL LESION O) - Tissue, RIGHT PARAUTERINE P) - Tissue, LEFT PELVIC BRIM Q) - Appendix, APPENDIX 06/15/2019 1:50 PM [facility] Final Diagnosis Soft tissue, right utero ovarian, biopsy (A): - Compatible with endometriosis Soft tissue, right ovarian fossa, biopsy (B): - Endometriosis Soft tissue, right IP , biopsy (C): - Compatible with endometriosis Soft tissue, right uterosacral ligament, biopsy (D): - Fibrous tissue with congested blood vessels Soft tissue, retrocervical, biopsy (E): - Fibrous tissue with congested blood vessels and crushed cells Soft tissue, right pararectal, biopsy (F): - Endometriosis Soft tissue, right posterior cul de sac, biopsy (G): - Endometriosis Soft tissue, middle posterior cul de sac, biopsy (H): - Endometriosis Soft tissue, left posterior cul de sac, biopsy (I): - Endometriosis Soft tissue, left pararectal, biopsy (J): - Compatible with endometriosis Soft tissue, left ovarian fossa, biopsy (K): - Endometriosis Soft tissue, left parauterine, biopsy (L): - Endometriosis Soft tissue, left uterosacral ligament, biopsy (M): - Endometriosis Soft tissue, anterior rectal lesion, biopsy (N): - Endometriosis Soft tissue, right parauterine, biopsy (O): - Endometriosis Soft tissue, left pelvic brim, biopsy (P): - Endometriosis Appendix, appendectomy (Q): - Fibrous adhesions 06/15/2019 1:50 PM [facility] Clinical History Mini is a 29-year-old woman with history of hronic pelvic pain - left dominant, dysmenorrhea, deep and superficial dyspareunia, and dyschezia, period-related. 06/15/2019 1:50 PM [facility] Gross Description A. Received in a container of formalin and labeled Mini [place], and right ureteral ovarian is one piece of purple-brown fibromembranous tissue measuring 0.4 cm in greatest dimension. The specimen is submitted in toto in cassette A1. B. Received in a container of formalin and labeled Wiemers, Mini L., and right ovarian fossa are three pieces of soft, sifuentes-brown tissue measuring 1.2 x 0.5 x 0.2 cm in aggregate. The specimen is submitted entirely in cassette B1. C. Received in a container of formalin and labeled Wiemers, Mini L., and right IP is one piece of sifuentes-brown tissue measuring 0.3 x 0.2 x 0.2 cm. The specimen is submitted in toto in cassette C1. D. Received in a container of formalin and labeled Wiemers, Mini L., and right uterosacral ligament is an irregular piece of purple-brown fibromembranous tissue measuring 1.8 cm in greatest dimension. Sectioning displays an unremarkable cut surface. The specimen is submitted entirely in cassette D1. E. Received in a container of formalin and labeled Wiemers, Mini L., and retrocervical is one piece of pink-sifuentes, firm, fibromembranous tissue measuring 0.6 cm in greatest dimension. The specimen is bisected and submitted entirely in cassette E1. F. Received in a container of formalin and labeled Wiemers, Mini L., and right perirectal is an irregular piece of yellow fatty tissue measuring 2.3 cm in greatest dimension. Sectioning displays a soft, yellow fatty cut surface. The specimen is submitted entirely in cassette F1. G. Received in a container of formalin and labeled Wiemers, Mini L., and right posterior cul-de-sac is an irregular piece of pink-sifuentes, fibromembranous tissue measuring 1 cm in greatest dimension. Sectioning displays an unremarkable cut surface. The specimen is submitted entirely in cassette G1. H. Received in a container of formalin and labeled Wiemers, Mini L., and middle posterior cul-de-sac is an irregular piece of yellow-sifuentes fatty tissue measuring 1.3 cm in greatest dimension. Sectioning displays an unremarkable cut surface. The specimen is submitted entirely in cassette H1. I. Received in a container of formalin and labeled Wiemers, Mini L., and left posterior cul-de-sac is an irregular piece of purple-sifuentes fatty tissue measuring 1.8 cm in greatest dimension. Sectioning displays a soft, yellow, fatty, friable cut surface. The specimen is submitted entirely in cassette I1. J. Received in a container of formalin and labeled Wiemers, Mini L., and left perirectal are two pieces of yellow-sifuentes fatty tissue measuring 0.7 x 0.2 x 0.2 cm in aggregate. The specimen is submitted in toto in cassette J1. K. Received in a container of formalin and labeled Wiemers, Mini L., and left ovarian fossa are three pieces of purple-brown fibromembranous tissue measuring 1.5 x 1.2 x 0.2 cm in aggregate. Sectioning displays an unremarkable cut surface. The specimen is submitted entirely in cassette K1. L. Received in a container of formalin and labeled Wiemers, Mini L., and left parauterine are two pieces of purple-sifuentes fibromembranous tissue measuring 1.7 x 1.2 x 0.2 cm. Sectioning displays an unremarkable cut surface. The specimen is submitted entirely in cassette L1. M. Received in a container of formalin and labeled Wiemers, Mini L., and left uterosacral ligament is an irregular piece of purple-sifuentes fibromembranous tissue measuring 1.7 cm in greatest dimension. Sectioning displays an unremarkable cut surface. The specimen is submitted entirely in cassette M1. N. Received in a container of formalin and labeled Wiemers, Mini L., and anterior rectal lesion is one piece of pink-sifuentes fibromembranous tissue measuring 0.3 cm in greatest dimension. The specimen is submitted entirely in cassette N1. O. Received in a container of formalin and labeled Wiemers, Mini L., and right parauterine is an irregular piece of purple-sifuentes fibromembranous tissue measuring 1.6 cm in greatest dimension. Sectioning displays an unremarkable cut surface. The specimen is submitted entirely in cassette O1. P. Received in a container of formalin and labeled Wiemers, Mini L., and left pelvic brim is an irregular layer of purple-brown fatty fibromembranous tissue measuring 3.3 x 2.7 x 0.2 cm. Sectioning displays a yellow fatty cut surface. The specimen is submitted entirely in cassettes P1-P2. Q. Received in a container of formalin and labeled Wiemers, Mini L., and appendix, is an appendix with attached mesoappendix. The vermiform appendix measures 10.5 cm in length x 0.4 cm in diameter. The serosa is purple-brown and glistening. Sectioning displays a patent lumen with a scant amount of fecal debris. No perforations or gross lesions are appreciated. The proximal aspect is inked. [employer] sections are submitted in cassette Q1. JOANN/marcial 06/15/2019 1:50 PM [facility] Microscopic Description Sections show endometriosis in specimens B, F-I, and K-P. The specimens A, C, and J show endometrial lining but no stroma or pigment laden macrophages. Specimens D and E shows fibrous tissue with congested blood vessels. Specimen Q shows appendix with fibrous adhesion. 06/15/2019 1:50 PM [facility] Disclaimer All histochemical and/or immunohistochemical results are interpreted with controls that demonstrate appropriate staining reactions before reporting results. Note on use of immunocytochemistry reagents: This test was developed and its performance characteristic determined by [facility], Department of Laboratory Medicine. It has not been cleared or approved by the U.S. Food and Drug Administration (FDA). The FDA has determined that such clearance or approval is not necessary. The test is used for clinical purpose. It should not be regarded as investigational or for research. This laboratory is certified to perform high complexity testing. 06/15/2019 1:50 PM [facility] Embedded Images 06/15/2019 1:50 PM [facility] Pathology/Cytology TISSUE SPECIMEN / Unknown 06/13/2019 1:30 PM CDT 06/14/2019 11:12 AM CDT Miscellaneous samples (specimen) MISCELLANEOUS SAMPLES / Unknown 06/13/2019 1:30 PM CDT 06/14/2019 11:12 AM CDT Miscellaneous samples (specimen) TISSUE SPECIMEN / Unknown 06/13/2019 1:33 PM CDT 06/14/2019 11:12 AM CDT Miscellaneous samples (specimen) ENTIRE LIGAMENT / Unknown 06/13/2019 1:36 PM CDT 06/14/2019 11:12 AM CDT Miscellaneous samples (specimen) TISSUE SPECIMEN / Unknown 06/13/2019 1:39 PM CDT 06/14/2019 11:12 AM CDT Miscellaneous samples (specimen) TISSUE SPECIMEN / Unknown 06/13/2019 1:42 PM CDT 06/14/2019 11:12 AM CDT Miscellaneous samples (specimen) ENTIRE RECTOUTERINE POUCH / Unknown 06/13/2019 1:52 PM CDT 06/14/2019 11:12 AM CDT Miscellaneous samples (specimen) ENTIRE RECTOUTERINE POUCH / Unknown 06/13/2019 1:52 PM CDT 06/14/2019 11:12 AM CDT Miscellaneous samples (specimen) ENTIRE RECTOUTERINE POUCH / Unknown 06/13/2019 1:55 PM CDT 06/14/2019 11:12 AM CDT Miscellaneous samples (specimen) TISSUE SPECIMEN / Unknown 06/13/2019 1:55 PM CDT 06/14/2019 11:12 AM CDT Miscellaneous samples (specimen) MISCELLANEOUS SAMPLES / Unknown 06/13/2019 2:00 PM CDT 06/14/2019 11:12 AM CDT Miscellaneous samples (specimen) TISSUE SPECIMEN / Unknown 06/13/2019 2:06 PM CDT 06/14/2019 11:12 AM CDT Miscellaneous samples (specimen) ENTIRE LIGAMENT / Unknown 06/13/2019 2:11 PM CDT 06/14/2019 11:12 AM CDT Miscellaneous samples (specimen) LESION SPECIMEN / Unknown 06/13/2019 2:14 PM CDT 06/14/2019 11:12 AM CDT Miscellaneous samples (specimen) TISSUE SPECIMEN / Unknown 06/13/2019 2:18 PM CDT 06/14/2019 11:12 AM CDT Miscellaneous samples (specimen) TISSUE SPECIMEN / Unknown 06/13/2019 2:23 PM CDT 06/14/2019 11:12 AM CDT Miscellaneous samples (specimen) ENTIRE APPENDIX / Unknown 06/13/2019 2:28 PM CDT 06/14/2019 11:12 AM CDT Allen Gutierrez MD LAB - PATHOLOGY/CY TOLOGY ORDERABLES [facility] [address] [place] [address] * BLOOD TYPE VERIFICATION (06/13/2019 10:23 AM CDT) ABO A 06/13/2019 10:55 AM CDT [facility] Rh Type Positive 06/13/2019 10:55 AM CDT [facility] Blood Bank BLOOD SPECIMEN / Unknown Venipuncture / Unknown 06/13/2019 10:23 AM CDT 06/13/2019 10:29 AM CDT Allen Gutierrez MD LAB - BLOOD BANK O RDERABLES Performing Organization Address [place]/[facility] Co de Phone Number [facility] [address] [place], [place] [address] [phone] * HCG URINE QUALITATIVE - POCT (IP) INTERFACED (06/13/2019 10:16 AM CDT) HCG Qual Urine Negative Negative 06/13/2019 10:17 AM CDT [facility] Urine URINE / Unknown 06/13/2019 1 0:16 AM CDT 06/13/2019 10:17 AM CDT Allen Gutierrez MD LAB - POINT OF CAR E ORDERABLES Performing Organization Address [facility] Co de Phone Number [facility] [address] [place] [address] * HCG URINE QUAL POCT NOTIFICATION (06/13/2019 10:05 AM CDT) Comment Notification Label Only - See Separate Report 06/13/2019 11:30 AM CDT [facility] Urine URINE / Unknown 06/13/2019 1 0:05 AM CDT 06/13/2019 10:05 AM CDT Allen Gutierrez MD LAB - URINALYSIS O RDERABLES Performing Organization Address [facility] Co de Phone Number [facility] [address] [place] [address] * IMAGING/RADIOLOGY/XRAY RESULTS ORDER (06/08/2019 12:54 PM CDT) Anatomical Region Laterality Modality Other Narrative 06/08/2019 12:54 PM CDT Ordered by an unspecified provider. Scanned Document IMAGING * TYPE + SCREEN PANEL (06/08/2019 11:49 AM CDT) ABO A 06/08/2019 1:03 PM CDT [facility] Rh Type Positive 06/08/2019 1:03 PM CDT [facility] Comment:History checked. Col lect retype. Antibody Screen Negative 06/08/2019 1:03 PM CDT [facility] Blood Bank BLOOD SPECIMEN / Unknown Venipuncture / Unknown 06/08/2019 11:49 AM CDT 06/08/2019 12:18 PM CDT Allen Gutierrez MD LAB - BLOOD BANK O RDERABLES [facility] [address] [phone] * CBC W AUTO DIFFERENTIAL (06/08/2019 11:49 AM CDT) WBC 4.9 4.4 - 10.7 x10E9/L 06/08/2019 2:11 PM CDT [facility] WBC Corrected x10E9/L 06/08/2019 2:11 PM CDT [facility] RBC 4.08 3.80 - 5.20 x10E12/L 06/08/2019 2:11 PM CDT [facility] Hemoglobin 12.2 12.0 - 15.6 gm/dL 06/08/2019 2:11 PM CDT [facility] Hematocrit 38.7 35.9 - 45.5 % 06/08/2019 2:11 PM CDT [facility] MCV 94.9 80.7 - 98.3 fl 06/08/2019 2:11 PM CDT [facility] MCH 29.9 26.7 - 34.0 pg 06/08/2019 2:11 PM CDT [facility] MCHC 31.5 30.8 - 35.9 gm/dL 06/08/2019 2:11 PM CDT [facility] Platelet Count 209 153 - 416 x10E9/L 06/08/2019 2:11 PM CDT [facility] RDW-CV 12.6 12.1 - 14.9 % 06/08/2019 2:11 PM CDT [facility] MPV 11.2 9.4 - 12.9 fl 06/08/2019 2:11 PM CDT [facility] Neutrophils % 58.5 44.0 - 73.0 % 06/08/2019 2:11 PM CDT [facility] Lymphocytes % 31.5 20.0 - 43.0 % 06/08/2019 2:11 PM CDT [facility] Monocytes % 7.4 5.0 - 13.0 % 06/08/2019 2:11 PM CDT [facility] Eosinophils % 0.8 0.0 - 6.0 % 06/08/2019 2:11 PM CDT [facility] Basophils % 1.2 0.0 - 2.0 % 06/08/2019 2:11 PM CDT [facility] Immature Granulocytes 0.6 0 - 1 % 06/08/2019 2:11 PM CDT [facility] Neutrophil Absolute 2.86 2.01 - 7.14 x10E9/L 06/08/2019 2:11 PM CDT [facility] Lymphocytes Absolute 1.54 1.07 - 3.94 x10E9/L 06/08/2019 2:11 PM CDT [facility] Monocytes Absolute 0.36 0.26 - 1.07 x10E9/L 06/08/2019 2:11 PM CDT [facility] Eosinophils Absolute 0.04 0 - 0.47 x10E9/L 06/08/2019 2:11 PM CDT [facility] Basophils Absolute 0.06 0 - 0.08 x10E9/L 06/08/2019 2:11 PM CDT [facility] Immature Granulocytes Absolute 0.03 0.00 - 0.06 x10E9/L 06/08/2019 2:11 PM CDT [facility] nRBC Auto 0 /100 WBC 06/08/2019 2:11 PM CDT [facility] Blood BLOOD SPECIMEN / Unknown Venipuncture / Unknown 06/08/2019 11:49 AM CDT 06/08/2019 2:08 PM CDT Allen Gutierrez MD LAB - HEMATOLOGY O RDERABLES [facility] [address] [place] [address] * BASIC METABOLIC PANEL (CALCIUM TOTAL) (06/08/2019 11:49 AM CDT) [facility] Glucose 83 74 - 106 mg/dL 06/08/2019 2:13 PM CDT [facility] Sodium 139 136 - 145 mmol/L 06/08/2019 2:13 PM CDT [facility] Potassium 3.9 3.5 - 5.1 mmol/L 06/08/2019 2:13 PM CDT [facility] Chloride 107 98 - 107 mmol/L 06/08/2019 2:13 PM CDT [facility] CO2 24 23 - 31 mmol/L 06/08/2019 2:13 PM CDT [facility] Calcium 9.2 8.4 - 10.2 mg/dL 06/08/2019 2:13 PM CDT [facility] Anion Gap 8 8 - 16 mmol/L 06/08/2019 2:13 PM CDT [facility] BUN 11 7 - 18.7 mg/dL 06/08/2019 2:13 PM CDT [facility] Creatinine 0.61 0.55 - 1.02 mg/dL 06/08/2019 2:13 PM CDT [facility] eGFR by MDRD >60 >60 mL/min/1.7 3m2 06/08/2019 2:13 PM CDT [facility] eGFR by MDRD >60 >60 mL/min/1.7 3m2 06/08/2019 2:13 PM CDT [facility] Blood BLOOD SPECIMEN / Unknown Venipuncture / Unknown 06/08/2019 11:49 AM CDT 06/08/2019 2:00 PM CDT Allen Gutierrez MD LAB - CHEMISTRY OR DERABLES Performing Organization Address City/State/[facility] Co de Phone Number [facility] [address] [place] [phone] * UT SONO EXAM, TRANSVAGINAL (05/05/2019 4:11 PM CDT) Narrative Diana Chamberlain RDMS - 05/05/2019 4:11 PM CDT Diana Chamberlain RDMS 05/05/2019 4:11 PM Documentation in digisonics. Allen Gutierrez MD PROCEDURE/MINOR HELLER RGICAL ORDERABLES * CHLAMYDIA + GC + TRICH DNA AMPL (04/05/2019) Chlamydia trachomatis RNA NOT DETECTED NOT DETECTED [facility] GC RNA NOT DETECTED NOT DETECTED [facility] Please Note [facility] Comment: This test was performed using the APTIMA COMBO2 Assay ([employer] The analytical performance characteristics of this assay, when used to test [employer] specimens have been determined by [employer]. Trichomonas vaginalis RNA Qualitative NOT DETECTED NOT DETECTED [facility] Comment: This test was performed using the APTIMA(R) Trichomonas vaginalis assay (Gen[employer]Pro[employer](R)). For more information on this test, go to: http://education.[employer]/faq/Trichomonastma Test Performed at: [facility] [place] [address] [place] [address] JAMES ROTH DO,MPH Microbiology ENTIRE ENDOCERVIX / Unknown 04/05/2019 04/06/2019 1:33 AM CDT Allen Gutierrez MD LAB - MICROBIOLOGY ORDERABLES Performing Organization Address [facility] Co de Phone Number [address] [address] * CULTURE URINE (04/05/2019) Pathologist [facility] Culture [facility] Comment: CULTURE, URINE, ROUTINE MICRO NUMBER: [id number] TEST STATUS: FINAL SPECIMEN SOURCE: URINE, CLEAN CATCH SPECIMEN QUALITY: ADEQUATE RESULT: No Growth Test Performed at: [facility] [address] TOSHA GRIFFIN MD 04/05/2019 04/06/2019 1:2 5 AM CDT Allen Gutierrez MD LAB - MICROBIOLOGY ORDERABLES Performing Organization Address [facility] Co de Phone Number [address] [phone] * INFLUENZA A+B - POINT OF CARE (AMB) (02/11/2017) Influenza A Antigen Rapid Negative Negative Influenza B Antigen Rapid Negative Negative Influenza Internal Control present NEGATIVE - POSITIVE Influenza Lot Number [id number] Influenza Expiration Date Other NASOPHARYNGEAL SWAB / Unknown 02/11/2017 Gustavo Fajardo MANAGER [employer] [facility] LAB - POINT OF CARE ORDERABLES Care Teams Patient Support Tech Relationship Specialty Start Date End Date Jax Carl MD [address] [place], [place] [phone] PCP - General 03/23/19
== END 2025-01-09 12:22 | disposition home or self-care (01) ==
PROVIDERS: PCP Family Medicine; Visit Provider Family Medicine
DX: Z87.01 Personal history of pneumonia (recurrent) (principal)
CPT/HCPCS: 71046